=== PATIENT | female | born 1990 | race Two or more races ===

== ENCOUNTER 2019-07-18 06:16 | Day surgery (SDC) | payer OTHER ==
[2019-07-18] VITALS (10 sets, daily range): BP systolic 90–130; BP diastolic 41–75
[~2019-07-18] VITALS: Ht 162.6 cm; Wt 65.3 kg
[~2019-07-18 06:16] MED LIST: ceFAZolin 1gm IVPB IVPB ONE; celeBREX 200mg Cap **SURGERY PATIENTS ONLY ORAL ONE; oxyCONTIN 20mg tab ORAL ONE
--- NOTE | 2019-07-18 07:03 | Anethesia Preoperative Eval ---
Anesthesia Pre-op PMH/ROS General Date of Evaluation: Jul 18, 2019 Anesthesiologist: Naveed ASA Score: ASA 2 Mallampati Score Class I : Soft palate, uvula, fauces, pillars visible Class II: Soft palate, uvula, fauces visible Class III: Soft palate, base of uvula visible Class IV: Only hard plate visible Mallampati Classification: Class I Surgeon: Timothy Diagnosis: Right knee internal derangement Surgical Procedure: Right knee arthroscopy Anesthesia History: none Family History: no anesthesia problems Allergies: Coded Allergies: No Known Allergies (Unverified , 07/17/19) Medications: see eMAR Patient NPO?: Yes NPO Date: Jul 18, 2019 NPO Time: 00:00 Past Medical History Cardiovascular: Reports: other - benign heart murmur as a child; Denies: HTN, CAD, RI, valve dz, arrhythmia Pulmonary: Denies: asthma, COPD, SANDRA, other Gastrointestinal/Genitourinary: Denies: GERD, CRI, ESRD, other Neurologic/Psychiatric: Denies: dementia, CVA, depression/anxiety, TIA, other Endocrine: Denies: DM, hypothyroidism, steroids, other HEENT: Denies: cataract (L), cataract (R), glaucoma, POARCH (L), POARCH (R), other Hematology/Immune: Denies: anemia, DVT, bleeding disorder, other Musculoskeletal/Integumentary: Denies: OA, RA, DJD, DDD, edema, other PSxH Narrative: Denies Anesthesia Pre-op Phys. Exam Physician Exam Last Vital Signs Date Time Temp Pulse Resp B/P (MAP) Pulse Ox O2 Delivery O2 Flow Rate FiO2 07/18/19 06:59 Room Air 07/18/19 06:57 98.0 59 18 130/66 99 Constitutional: NAD Cardiovascular: RRR, other - no audible murmur Respiratory: CTA Airway Exam Mallampati Score: Class I MO: full ROM: full Teeth: intact Anesthesia Pre-op A/P Labs see chart Studies Pre-op Studies: EKG - SB Risk Assessment & Plan Assessment: ASA II Plan: GA Status Change Before Surgery: No Pre-Antibiotics Drug: Ancef 1g Given Within 1 Hr of Incision: Yes Magalie Ng MD Jul 18, 2019 07:03
--- NOTE | 2019-07-18 07:15 | Pre-Procedure Note/Attestation ---
Pre-Procedure Note/Attestation Complete Prior to Procedure Planned Procedure: right Procedure Narrative: diagnostic arthroscopy, possible menisectomy Indications for Procedure Pre-Operative Diagnosis: right knee meniscus tear Attestation I attest that I discussed the nature of the procedure; its benefits; risks and complications; and alternatives (and the risks and benefits of such alternatives ), prior to the procedure, with the patient (or the patient's legal client representative). I attest that, if there was a reasonable possibility of needing a blood transfusion, the patient (or the patient's legal client representative) was given the [facility] standardized written summary, pursuant to the Corky Devyn Blood Safety Act ([place] Health and Safety Code # 1645, as amended). I attest that I re-evaluated the patient just prior to the surgery and that there has been no change in the patient's H&P, except as documented below: Brenton Aguirre MD Jul 18, 2019 07:15
--- NOTE | 2019-07-18 07:16 | Operative Note - PDOC ---
Operative Note Operative Note Pre-op Diagnosis: right knee meniscus tear Procedure: see op report Post-op Diagnosis: same as pre-op plus Anesthesia: MAC Specimen: none Complications: none Condition: stable Estimated Blood Loss: none Implant(s) used?: No Brenton Aguirre MD Jul 18, 2019 07:16
[2019-07-18] MEDS ORDERED: Propofol 200mg/20ml IV ONE (07:30)
[2019-07-18] MEDS ORDERED: Midazolam 2mg/2ml Inj ONE (07:30)
[2019-07-18] MEDS ORDERED: fentaNYL 100 mcg/2 mL IV ONE (07:30)
[2019-07-18] MEDS ORDERED: Lidocaine 1% MPF 10mg/ml 5ml ONE (07:30)
[2019-07-18] MEDS ORDERED: LR 1000ml 1,000 ML IVLG SCH (07:39)
[2019-07-18] MEDS ORDERED: Metoclopramide 10mg/2ml Inj IVP PRN ×2 (07:45→08:00)
[2019-07-18] MEDS ORDERED: DiphenhydrAMINE 50mg/ml Inj IVP PRN (07:45)
[2019-07-18] MEDS ORDERED: Ketorolac 30mg Inj IV PRN (07:45)
[2019-07-18] MEDS ORDERED: Midazolam 2mg/2ml Inj IVP PRN (07:45)
[2019-07-18] MEDS ORDERED: Hydromorphone 0.5mg/0.5ml inj IVP PRN (07:45)
[2019-07-18] MEDS ORDERED: fentaNYL 100 mcg/2 mL IV PRN (07:45)
[2019-07-18] MEDS ORDERED: LORazepam Inj 2mg/ml 1ml IV PRN (07:45)
[2019-07-18] MEDS ORDERED: Ketorolac 30mg Inj ONE ×2 (07:50→09:15)
[2019-07-18] MEDS ORDERED: Kenalog-40 1ml Vial ONE (07:50)
[2019-07-18] MEDS ORDERED: Lidocaine 1% 10mg/ml/Epi 0.005mg/ml 30ml vial INJ ONE (07:50)
[2019-07-18] MEDS ORDERED: Duramorph PF 5mg/10ml amp ONE (07:50)
[2019-07-18] MEDS ORDERED: Bupivacaine 0.25% Inj 30ml INJ ONE (07:50)
[2019-07-18] MEDS ORDERED: LR 1000ml ONE (08:30)
[2019-07-18] MEDS ORDERED: NS Irrig 4000ml IRRIG ONE (08:30)
[2019-07-18] MEDS ORDERED: Duramorph PF 5mg/10ml amp IV ONE (08:52)
[2019-07-18] MEDS ORDERED: Dexamethasone 4mg/ml vial ONE (08:55)
--- NOTE | 2019-07-18 09:48 | Immediate Post-Op Evaluation ---
Immediate Post-Op Evalulation Immediate Post-Op Evalulation Procedure: Right knee arthroscopy Date of Evaluation: Jul 18, 2019 Time of Evaluation: 09:51 IV Fluids: 600 Blood Products: 0 Estimated Blood Loss: 0 Urinary Output: 0 Blood Pressure Systolic: 96 Blood Pressure Diastolic: 43 Pulse Rate: 70 Respiratory Rate: 16 O2 Sat by Pulse Oximetry: 98 Temperature (Fahrenheit): 98.1 Pain Score (1-10): 0 Nausea: No Vomiting: No Complications 0 Patient Status: awake, reacts, patent, none Hydration Status: adequate Drug: Ancef 1g Given Within 1 Hr of Incision: Yes Magalie gN MD Jul 18, 2019 09:48
--- NOTE | 2019-07-18 09:48 | 48 Hour Post Anesthesia Eval ---
Post Anesthesia Evaluation Procedure: Right knee arthroscopy Date of Evaluation: Jul 18, 2019 Airway: patent Nausea: No Vomiting: No Pain Intensity: 0 Hydration Status: adequate Cardiopulmonary Status: at baseline Mental Status/LOC: patient returned to baseline Post-Anesthesia Complications: 0 Follow-up care needed: ready to discharge Magalie Ng MD Jul 18, 2019 09:48
[2019-07-18] MEDS ORDERED: D5 1/2NS 1,000 ML IV SCH (15:46)
[2019-07-18] MEDS ORDERED: HYDROmorphone 1mg/ml Carpuject SUBQ PRN (15:46)
[2019-07-18] MEDS ORDERED: Tylenol #3 tab (300mg/30mg) ORAL PRN (15:46)
[2019-07-18] MEDS ORDERED: HYDROcodone/Acetamin 5/325 tab ORAL PRN (15:46)
--- NOTE | 2019-07-18 18:15 | Operative Note - Dictated ---
DATE OF OPERATION: 07/18/2019 PREOPERATIVE DIAGNOSIS: Right knee internal derangement. POSTOPERATIVE DIAGNOSIS: Right knee symptomatic medial plica with secondary chondral damage in medial femoral condyle. PROCEDURE: 1. Right knee diagnostic arthroscopy. 2. Synovectomy in medial and lateral patellofemoral compartment. SURGEON: Brenton Aguirre M.D. ANESTHESIA: MAC with local. INDICATION FOR PROCEDURE: The patient is a pleasant 29-year-old female, who has had chronic history of knee pain despite conservative treatment. She had MRI, which was relatively unremarkable, continued to have anterior knee pain. Given that she had a positive response with intra-articular cortisone injection and continued symptoms, diagnostic arthroscopy was recommended. Risks, limitations, expectations, and complications of the procedure were discussed in detail. All questions addressed. DESCRIPTION OF PROCEDURE: After informed consent was obtained, the patient was brought to the operating room. The patient was placed under monitored anesthesia control. Right knee was prepped and draped in a sterile manner. Time-out was performed. Inferolateral stab incision was then made. Trocar introduced into the patellofemoral compartment. There was significant resistance, placed the trocar into the patellofemoral compartment. It was difficult to visualize the patellofemoral compartment. Medial gutter was entered free from any loose bodies. Medial compartment was entered. Medial working portal was established. Synovectomy of the anterior portion of the medial compartment was performed to better visualize the medial compartment, that was extending intercondylar notch and lateral compartment to better visualize AC and lateral compartment. Medial meniscus probed noted to be intact. The ACL was intact. The lateral compartment was free from the meniscal chondral damage. At this point, the camera was repositioned in the patellofemoral compartment. Excision of fat pad and medial plica was performed. Once this was done, the area of chondral damage and the medial femoral condyle were identified. Once the soft tissue was completely removed, there was no impingement of this chondral area. Instruments removed. Portal sites were closed with 3-0 Monocryl sutures. Steri-Strips and a sterile dressing were applied. ESTIMATED BLOOD LOSS: None. COMPLICATIONS: None. SPECIMENS: None. IMPLANTS: None. Brenton Aguirre M.D. DR: JB JOB#: [id number] CC: TRU
== END 2019-07-18 11:20 | disposition home or self-care (01) ==
LOC: SUR 06:16
DX: M67.51 Plica syndrome, right knee (principal)
CPT/HCPCS: 29876; 81025; J0690; J1100; J1885; J2250; J2405; J2704; J3010; J3301; J3490; J7120; 94003; 94150